=== PATIENT | female | born 2000 | race Caucasian/White ===

== ENCOUNTER 2022-06-20 09:09 | Emergency (ER) | payer OTHER, SELFPAY ==
[2022-06-20 09:10] VITALS: BP 131/68; PULSE 73; RESP 18; TEMP 36.5; O2SAT 100; BMI 19.6
--- NOTE | 2022-06-20 09:13 | ED.ABDPAIN ---
HPI - Abdominal Pain General Chief Complaint: Abdominal Pain Stated Complaint: sent by [facility]/ pain RT lower ABD Time Seen by Provider: 06/20/22 09:13 Source: patient Mode of arrival: Ambulatory Limitations: no limitations History of Present Illness HPI narrative: This is a 22-year-old healthy female with no medical issues, no prior surgeries. Patient states she started having right lower quadrant pain about 1:00 a.m. this morning which woke her up from sleep. It has been consistently present since then. She states when she had a bowel movement today she will have pain at the rectum but on the right lower region. She denies fevers, she states she is been chilled but states it is cold outside and she is generally in a cold environment. She denies any upper respiratory symptoms. No chest pain or shortness breath. She is had some nausea but no vomiting. She denies any diarrhea constipation. No black or bloody stools. She is due to start her menses in the next several days her last menstrual period was towards the end of May. No vaginal discharge. No dysuria worsens of urgency but has had a little bit of frequency. Patient denies any prior surgeries. No known drug allergies. Denies tobacco, alcohol or illicit other than an edible THC once monthly. Related Data Previous Rx's Medication Instructions Recorded cephalexin 500 mg capsule 500 mg PO BID #14 caps 06/20/22 Review of Systems Review of Systems ROS Unobtainable: All systems reviewed & are unremarkable except as noted in HPI and below Patient History Social History Smoking Status: Never smoker Exam Narrative Exam Narrative: GENERAL: Alert and oriented x three, well-nourished female in mild distress. HEENT: Head normocephalic, atraumatic, EOMI, pupils reactive, face symmetric, moist mucous membranes NECK: Supple, full range of motion CARDIOVASCULAR: Regular rate and rhythm without murmurs, rubs or gallops. RESPIRATORY: Breath sounds equal bilaterally, no wheezes rales or rhonchi. ABDOMEN: Soft, patient has mild right upper quadrant tenderness but very distinct right lower quadrant tenderness. Normoactive bowel sounds all 4 quadrants. No guarding positive for rebound, no rigidity, no mass : No CVA tenderness EXTREMITIES: Normal range of motion, no clubbing or edema. Neurovascularly intact NEUROLOGICAL: Cranial nerves II through XII grossly intact. Moving all extremities. Normal gait. SKIN: Warm, dry, no petechiae, no rashes or lesions. Initial Vital Signs Initial Vital Signs: Vital Signs Temperature 97.7 F 06/20/22 09:10 Pulse Rate 73 06/20/22 09:10 Respiratory Rate 18 06/20/22 09:10 Blood Pressure 131/68 06/20/22 09:10 Pulse Oximetry 100 06/20/22 09:10 Oxygen Delivery Method 06/20/22 09:10 Course Orders Ordered: ED Orders 06/20/22 10:54 CT abdomen pelvis w con Stat Discontinued Medications Ketorolac Tromethamine (Ketorolac 30 Mg/Ml Vial) 15 mg IV NOW ONE Stop: 06/20/22 09:44 Last Admin: 06/20/22 09:48 Dose: 15 mg Documented By: MANISHA Ondansetron HCl (Ondansetron 4 Mg Odt) 4 mg PO NOW PRN PRN Reason: Nausea And Vomiting Ondansetron HCl (Ondansetron 4 Mg/2 Ml Inj) 4 mg IV NOW PRN PRN Reason: Nausea And Vomiting Vital Signs Vital signs: Vital Signs - 8 hr 06/20/22 13:13 Pulse Rate 58 L Blood Pressure 116/84 Pulse Oximetry 96 Oxygen Delivery Method Room Air MDM - Abdominal Pain Lab Data Result diagrams: 06/20/22 09:28 06/20/22 09:28 Labs: Lab Results 06/20/22 06/20/22 06/20/22 Range/Units 09:16 09:28 09:28 WBC 9.2 (4.5-11.0) X10^3/uL RBC 4.68 (4.0-5.2) X10^6/uL Hgb 13.8 (12.0-16.0) g/dL Hct 41.0 (36-46) % MCV 87.6 (80-100) fL MCH 29.4 (26-34) PG MCHC 33.6 (30-36) % RDW 12.1 (11.6-14.8) % Plt Count 252 (150-400) X10^3/uL Neut % (Auto) 79.0 H (50-75) % Lymph % (Auto) 15.3 L (25-40) % Quay % (Auto) 5.2 (3-14) % Eos % (Auto) 0.1 L (2-4) % Baso % (Auto) 0.4 (0-2) % Neut # (Auto) 7200 H (4813-6866) /uL Lymph # (Auto) 1400 (7093-2313) /uL Quay # (Auto) 500 (0-900) /uL Eos # (Auto) 0 (0-450) /uL Baso # (Auto) 0 (0-100) /uL Sodium 139 (137-145) mmol/L Potassium 3.5 (3.4-5.1) mmol/L Chloride 107 (98-107) mmol/L Carbon Dioxide 20 L (22-32) mmol/L BUN 12 (7-17) mg/dL Creatinine 0.71 (0.52-1.04) mg/dL Estimated GFR > 60 (>60) mL/min BUN/Creatinine Ratio 16.9 (6-22) Glucose 90 (70-100) mg/dL Calcium 8.8 (8.4-10.2) mg/dL Total Bilirubin 1.2 (0.2-1.3) mg/dL AST 24 (14-36) IU/L ALT 18 (<35) IU/L Alkaline Phosphatase 61 (38-126) U/L Total Protein 7.5 (6.3-8.2) g/dL Albumin 4.3 (3.5-5.0) g/dL Globulin 3.2 (1.7-4.1) g/dL Albumin/Globulin Ratio 1.3 (1.0-2.8) Lipase 46 (23-300) U/L Ur Bilirubin Confirm Negative (Negative) Urine RBC 5-10/hpf H (0-5/HPF) Urine WBC 5-10/hpf H (0-5/HPF) Ur Squamous Epith Cells 1-5 /hpf (0-5/HPF) Urine Bacteria Moderate (10-30) H (None) Ur Culture Indicated? Specimen cultured Point of care testing: Point of Care Testing Test Results Negative Urine Dip Bedside Urine Glucose Negative Bedside Urine Bilirubin + 1 Bedside Urine Ketone + 15 Urine Specific [place] 1.030 Bedside Urine Occult Blood - Negative Bedside Urine pH 6 Bedside Urine Protein + 30 Bedside Urine Urobilinogen - Negative Bedside Urine Nitrite - Negative Bedside Urine Leukocytes ++ 125 Esterase Imaging Data US - abdomen: Radiologist's Impression: Appendix not visualized no free fluid no rebound tenderness. CT abdomen pelvis recommended continued to clinically suspect acute appendicitis as can not confirm or deny appendicitis at this time. CT scan - abdomen/pelvis: Radiologist's Impression: Close Abdomen/Pelvis CT (Signed) Charli Dunlap - 06/20/22 Abdomen Ultrasound (Signed) Charli Dunlap - 06/20/22 Launch?[address] [address] [address] Scan Report Signed Patient: Charline Wright MR#: [id number] : 2000 Acct:[id number] Age/Sex: 22 / F Date of Service: 06/20/22 Loc: ED Accession Number: [id number] ?? Procedure: CT abdomen pelvis w con Ordering Provider: Kat Moscoso D.O. PROCEDURE:? CT ABDOMEN PELVIS W CON ? INDICATIONS:? RLQ pain.? White count 9.2, with leftward shift ? TECHNIQUE:? After the administration of intravenous contrast, axial sections acquired from the lung bases to the pubic symphysis.? Coronal and sagittal reformats were performed.? For radiation dose reduction, the following was used:? automated exposure control, adjustment of mA and/or kV according to patient size.? ? COMPARISON:? None. ? FINDINGS:? Image quality:? Excellent.? ? Lung bases:? Unremarkable. Heart:? No significant findings. ? ABDOMEN: Liver:? Unremarkable.? ? Gallbladder:? Unremarkable.? ? Biliary ducts:? Unremarkable.? ? Pancreas:? Unremarkable.? ? Spleen:? Unremarkable.? ? Adrenal Glands:? Unremarkable.? ? Kidneys and Ureters:? Unremarkable.? ? ? Stomach and Bowel:? There is both a paucity intra-abdominal fat and lack of oral contrast.? In this setting, the appendix is identified.? Acute appendicitis cannot be excluded.? There is a collapsed right adnexal cyst. Peritoneum:? No abnormal intraperitoneal fluid.? No free air.? ? Ventral Wall: ? No hernias.? Abdominal Nodes:? No retroperitoneal or mesenteric adenopathy by size criteria.? Vessels:? Aorta and inferior vena cava are normal in size.? ? PELVIS: Pelvic Organs:? Unremarkable.? ? Bladder:? Unremarkable.? ? Pelvic Nodes: No enlarged lymph nodes.? Miscellaneous: No hernias are seen. ? ? ? Bones:? Unremarkable.? IMPRESSION:? ? 1. Patient with borderline increased white count and leftward shift.? Unfortunately, there is a paucity of abdominal fat as well as lack of bowel contrast.? The appendix is clearly identified. ? 2. There is a collapsed right adnexal cyst. ? Comment: Findings were discussed with Dr. Moscoso on? 06/20/2022 at 1203 hours.? If clinically continue to suspect acute appendicitis, consider surgical consultation.? Also consider repeat study after oral contrast administered, with additional IV contrast administered. ? ? Dictated by: Charli Dunlap M.D. on 06/20/2022 at 12:04 ? ? Approved by: Charli Dunlap M.D. on 06/20/2022 at 12:07?? MDM Narrative Medical decision making narrative: [age] year old female complaint of right lower quadrant pain that is very localized. Labs overall reassuring urine does show possible UTI versus pyelonephritis she notes some mild flank pain but is quite tender in the right lower quadrant specifically with no CVA tenderness. Ultrasound was not definitive. Patient has had almost 12 hours of pain that has been persistent and even had increased pain with bowel in the right lower quadrant making more suspicious for appendicitis and CT abdomen felt appropriate for further evaluation. Discussed with patient she is agreeable to CT. We did review she could have a possible pyelonephritis she is complaining of some flank pain has leuks on her urine as well as a small amount of blood but would recommend CT to rule out appendicitis as we can not completely rule this out. CT abdomen pelvis was discussed with myself by Radiology he is able to visualize the appendix but states because patient has low BMI very difficult for him to rule in or out appendicitis. He does note a right collapse adnexal cyst. But states really inadequate exam no other clear cause is found on imaging. Discussed with patient that we have not completely ruled out appendicitis. It is recommended that she have repeat CT localized the appendix with oral contrast based on her BMI, patient is really willing to do this at this time. We did review the possibility of urine or pyelonephritis causing her infection and pain but patient very easily could have appendicitis which can kill her and can rupture and cause peritonitis. Patient prefers to return home she is open to follow-up in next 24 hours. She states her pain improved quite a bit after Toradol she is quite anxious about being in a emergency department. Discharge Plan Departure Patient Disposition: Home Clinical Impression: Abdominal pain, right lower quadrant Instructions: DI for Abdominal Pain-Adult Activity Restrictions/Additional Instructions: Your right lower abdominal pain is suspicious for appendicitis but has not been completely ruled out today. Your urine does show signs of possible infection we can treat you with antibiotics but it is recommended to repeat your CT with oral contrast and a localized appendix protocol today. As you have elected to leave and not do the repeat CT portion today you need to be rechecked in the next 24 hours. Prescription sent to [facility] [employer] [facility] Please return for fevers, new or worsening abdominal pain, persistent vomiting, black or bloody stools or other new or concerning changes. Prescriptions: New cephalexin 500 mg capsule 500 mg PO BID Qty: 14 0RF Referrals: Melony Hyman MD [Primary Care Provider] - Stand Alone Forms: Patient Portal/API
[2022-06-20 09:19] VITALS: PULSE 59; O2SAT 100
[2022-06-20 09:20] VITALS: BP 131/68; PULSE 76; O2SAT 100
--- NOTE | 2022-06-20 09:39 | DI.US.S_ITS ---
PROCEDURE: US ABDOMEN LIMITED INDICATIONS: RIGHT LOWER QUADRANT PAIN ?APPENDICITIS VERSUS KIDNEY PAIN TECHNIQUE: Real-time focused scanning was performed of the abdomen, with image documentation. COMPARISON: None. FINDINGS: The appendix is not identified. There is no free fluid. No rebound tenderness. Patient was pre-medicated. IMPRESSION: Appendix is not identified. Acute appendicitis is not excluded. Comment: Suggest CT abdomen and pelvis if continue to clinically suspect acute appendicitis. Dictated by: Charli Dunlap M.D. on 06/20/2022 at 10:32 Approved by: Charli Dunlap M.D. on 06/20/2022 at 10:38
[2022-06-20 09:40] LABS: Ictotest Urine Negative (Negative)
[2022-06-20 09:41] LABS: Add Manual Diff / Slide Review NO; Basophils Absolute Auto 0 /uL (0-100); Basophils Percent Auto 0.4 % (0-2); Eosinophils Absolute Auto 0 /uL (0-450); Eosinophils Percent Auto 0.1 % (2-4); Hemoglobin 13.8 g/dL (12.0-16.0); Lymphocytes Absolute Auto 1400 /uL (1100-4500); Lymphocytes Percent Auto 15.3 % (25-40); Mean Corpuscular HGB Conc 33.6 % (30-36); Mean Corpuscular Hemoglobin 29.4 PG (26-34); Mean Corpuscular Volume 87.6 fL (80-100); Monocytes Absolute Auto 500 /uL (0-900); Monocytes Percent Auto 5.2 % (3-14); Neutrophils Absolute Auto 7200 /uL (1500-7000); Platelet Count 252 X10^3/uL (150-400); Red Blood Cell Count 4.68 X10^6/uL (4.0-5.2); Red Cell Distribution Width 12.1 % (11.6-14.8); White Blood Cell Count 9.2 X10^3/uL (4.5-11.0)
[2022-06-20 09:44] LABS: Bacteria Urine Moderate (10-30); Culture Indicated Urine Specimen Cultured; RBC Urine 5-10/HPF (0-5/HPF); Squamous Epithelial Cell Urine 1-5 /HPF (0-5/HPF); WBC Urine 5-10/HPF (0-5/HPF)
[2022-06-20] MEDS: KETOROLAC 30 MG/ML VIAL 15 MG IV (09:48)
[2022-06-20 09:56] LABS: Alanine Aminotransferase 18 IU/L (<35); Alkaline Phosphatase 61 U/L (38-126); Aspartate Aminotransferase 24 IU/L (14-36); BUN Creatinine Ratio 16.9 (6-22); Bilirubin Total 1.2 mg/dL (0.2-1.3); Blood Urea Nitrogen 12 mg/dL (7-17); Calcium 8.8 mg/dL (8.4-10.2); Carbon Dioxide 20 mmol/L (22-32); Chloride 107 mmol/L (98-107); Estimated Glomerular Filt Rate > 60 mL/min (>60); Glucose 90 mg/dL (70-100); Lipase 46 U/L (23-300); Potassium 3.5 mmol/L (3.4-5.1); Sodium 139 mmol/L (137-145); Total Protein 7.5 g/dL (6.3-8.2)
--- NOTE | 2022-06-20 10:54 | DI.CT.S_ITS ---
PROCEDURE: CT ABDOMEN PELVIS W CON INDICATIONS: RLQ pain. White count 9.2, with leftward shift TECHNIQUE: After the administration of intravenous contrast, axial sections acquired from the lung bases to the pubic symphysis. Coronal and sagittal reformats were performed. For radiation dose reduction, the following was used: automated exposure control, adjustment of mA and/or kV according to patient size. COMPARISON: None. FINDINGS: Image quality: Excellent. Lung bases: Unremarkable. Heart: No significant findings. ABDOMEN: Liver: Unremarkable. Gallbladder: Unremarkable. Biliary ducts: Unremarkable. Pancreas: Unremarkable. Spleen: Unremarkable. Adrenal Glands: Unremarkable. Kidneys and Ureters: Unremarkable. Stomach and Bowel: There is both a paucity intra-abdominal fat and lack of oral contrast. In this setting, the appendix is identified. Acute appendicitis cannot be excluded. There is a collapsed right adnexal cyst. Peritoneum: No abnormal intraperitoneal fluid. No free air. Ventral Wall: No hernias. Abdominal Nodes: No retroperitoneal or mesenteric adenopathy by size criteria. Vessels: Aorta and inferior vena cava are normal in size. PELVIS: Pelvic Organs: Unremarkable. Bladder: Unremarkable. Pelvic Nodes: No enlarged lymph nodes. Miscellaneous: No hernias are seen. Bones: Unremarkable. IMPRESSION: 1. Patient with borderline increased white count and leftward shift. Unfortunately, there is a paucity of abdominal fat as well as lack of bowel contrast. The appendix is clearly identified. 2. There is a collapsed right adnexal cyst. Comment: Findings were discussed with Dr. Moscoso on 06/20/2022 at 1203 hours. If clinically continue to suspect acute appendicitis, consider surgical consultation. Also consider repeat study after oral contrast administered, with additional IV contrast administered. Dictated by: Charli Dunlap M.D. on 06/20/2022 at 12:04 Approved by: Charli Dunlap M.D. on 06/20/2022 at 12:07
[2022-06-20 13:13] VITALS: BP 116/84; PULSE 58; O2SAT 96
[2022-06-20 16:27] LABS: Albumin 4.3 g/dL (3.5-5.0); Albumin Globulin Ratio 1.3 (1.0-2.8); Globulin 3.2 g/dL (1.7-4.1); HEMOLYSIS < 15 (0-50)
== END 2022-06-20 13:14 | disposition home or self-care (01) ==
PROVIDERS: Emergency Provider Emergency Medicine; PCP Family Medicine
DX: R10.31 Right lower quadrant pain (principal)
CPT/HCPCS: 36415; 74177; 76705; 80053; 81003; 81015; 81025; 83690; 85025; 87086; 96374; 99284; J1885; Q9967